=== PATIENT | female | born 1985 | race Caucasian/White ===

== ENCOUNTER 2019-04-10 22:33 | Emergency (ER) | payer OTHER ==
[2019-04-10 22:42] VITALS: BP 144/82; PULSE 74; TEMP 97.7; BMI 32.1
[2019-04-10] MEDS ORDERED: ALPRAZolam 0.25 MG TABLET PO STA (22:47)
[2019-04-10] MEDS ORDERED: ALPRAZolam 0.25 MG TABLET ONE (22:49)
--- NOTE | 2019-04-10 22:50 | PDOC ---
History of Present Illness - General Chief Complaint: Cold Symptoms Stated Complaint: BODY ACHES/PAIN/MALAISE Time Seen by Provider: 04/10/19 22:41 History Source: Patient Exam Limitations: No Limitations - History of Present Illness Initial Comments: 04/10/19 22:48 This is a 33-year-old female who is healthy. Patient comes in complaining of not feeling well some generalized malaise and tightness in her chest x1 day now. Patient states she has been feeling intermittently short of breath and very anxious. Patient states she has been under a lot of stress for the last 2 weeks and does have a history of anxiety. Patient does not take anything for her anxiety. Patient is otherwise healthy denies any history of hypertension, high cholesterol, diabetes or any cardiac risk factors. Patient does not have a family of cardiac risk factors. Allergies: as per nursing notes Past Medical History: none Social history: Lives with family. No smoking. No alcohol. No illicit drugs. Surgical history: None General: No fevers or chills, no weakness, no weight loss, generalized malaise HEENT: No change in vision. No sore throat,. No ear pain CardioVascular: + chest discomfort. + shortness of breath Respiratory:No cough, or wheezing. Gastrointestinal: no nausea, vomiting, diarrhea or constipation, No rectal bleeding Genitourinary: No dysuria, hematuria, or frequency Musculoskeletal: No joint or muscle pain or swelling Neurologic: No headache, vertigo, dizziness or loss of consciousness Psychiatric: nor depression Skin: No rashes or easy bruising Endocrine: no increased thirst or abnormal weight change Allergic: no skin or latex allergy All other systems reviewed and normal Exam: General: Well-nourished well-developed individual, no acute distress HEENT: Throat: Normal, tonsils normal, no erythema or exudate Neck: Supple, no meningeal signs, no lymphadenopathy Eyes::Pupils equal reactive and round, extraocular motion intact Chest: Nontender to palpation Cardiac: S1-S2 normal, regular rate and rhythm, no murmurs rubs or gallops Respiratory: Lungs clear to auscultation bilateral Abdomen: Soft, nondistended, normal bowel sounds, there is no tenderness on palpation diffusely Extremities: Warm, dry, no cyanosis, clubbing, or edema Skin: No rashes Neuro: Alert and oriented x3, CN II - XII intact, nonfocal exam with normal strength, normal sensation, normal reflexes, normal gait, Psych: Normal mood and affect 04/10/19 23:05 Assessment and plan: This is a 33-year-old female who comes in complaining of anxiety with some chest tightness and shortness of breath. Patient lungs are clear and there her O2 sats are 100%. Patient had a cardiogram done that showed sinus rhythm with an occasional PVC no acute ST-T wave changes her QT was slightly prolonged but otherwise EKG was normal patient has no cardiac risk factors and feels better post Xanax. Patient discharged home will follow-up with her primary care doctor.. Past History - Past Medical History Allergies/Adverse Reactions: Allergies Allergy/AdvReac Type Severity Reaction Status Date / Time No Known Allergies Allergy Unverified 04/10/19 22:35 Home Medications: Ambulatory Orders NK [No Known Home Medication] 04/10/19 COPD: No - Psycho Social/Smoking Cessation Hx Smoking History: Never smoked *Physical Exam - Vital Signs Last Vital Signs Temp Pulse Resp BP Pulse Ox 97.7 F 74 16 144/82 98 04/10/19 22:37 04/10/19 22:37 04/10/19 22:37 04/10/19 22:37 04/10/19 22:37 Discharge - Discharge Information Problems reviewed: Yes Clinical Impression/Diagnosis: Anxiety, Feeling of chest tightness Condition: Stable Disposition: HOME - Admission No - Follow up/Referral Referrals: Herberth Sanchez MD [Primary Care Provider] - - Patient Discharge Instructions Additional Instructions: Follow-up with your primary care doctor if symptoms persist. Work on reducing stress in your life. Return to the emergency department immediately with ANY new, persistent or worsening symptoms. Continue any medications as previously prescribed by your physician. You should follow up with your primary doctor as soon as possible regarding today's emergency department visit. . Please make sure your doctor reviews the results of your emergency evaluation. Thank you for coming to the Emergency Department today for your care. It was a pleasure to see you today. Please note that your evaluation is INCOMPLETE until you follow-up with your doctor. - Post Discharge Activity
--- NOTE | 2019-04-11 13:40 | EKG ---
Test Reason : Blood Pressure : / mmHG Vent. Rate : 100 BPM Atrial Rate : 100 BPM P-R Int : 142 ms QRS Dur : 088 ms QT Int : 378 ms P-R-T Axes : 064 081 068 degrees QTc Int : 487 ms SINUS RHYTHM WITH OCCASIONAL PREMATURE VENTRICULAR COMPLEXES POSSIBLE LEFT ATRIAL ENLARGEMENT PROLONGED QT ABNORMAL ECG NO PREVIOUS ECGS AVAILABLE Confirmed by FRANSISCO LANGFORD MD ([id number]) on 04/11/2019 1:39:42 PM Referred By: DR ADAMS Confirmed By:FRANSISCO LANGFORD MD
== END 2019-04-10 23:25 | disposition home or self-care (01) ==
LOC: FER 22:33
DX: R07.89 Other chest pain (principal); F41.9 Anxiety disorder, unspecified
CPT/HCPCS: 93005; 99281-25